=== PATIENT | female | born 1975 | race Caucasian/White ===

== ENCOUNTER → 2022-06-19 | Outpatient (CLI) | payer BC | LOC: KOH-I 08:46 | DX: M79.672 Pain in left foot (principal) | CPT/HCPCS: 73630 ==

== ENCOUNTER → 2022-06-28 | Outpatient (CLI) | payer BC | LOC: KOH-I 12:35 | DX: S93.522A Sprain of metatarsophalangeal joint of left great toe, initial encounter (principal); M20.5X2 Other deformities of toe(s) (acquired), left foot | CPT/HCPCS: 73718 ==